=== PATIENT | male | born 1935 | race Caucasian/White ===

== ENCOUNTER 2017-07-05 12:31 | Emergency (ER) | payer MEDICARE, MEDICAID ==
[~2017-07-05] VITALS: Ht 180.3 cm; Wt 77.0 kg
[~2017-07-05 12:31] MED LIST: ALBU18HF2; AMLO5TAB88; ASPI-785 PO; LOSA100T3; OMEP20CA10; SIMV40TA2 PO; TOLT4CAP PO; TRAM50TA3; TRAM50TA3 PO
[2017-07-05 15:34] LABS: BASOPHILS % 0.6 % (0.0-2.0); EOSINOPHILS % 2.4 % (0.0-5.0); HEMATOCRIT. 38.5 % (42.0-52.0); HEMOGLOBIN. 12.7 g/dL (14.0-18.0); LYMPHOCYTES % 22.4 % (20.0-50.0); MEAN CORPUSCULAR HEMOGLOBIN 31.8 pg (28.0-32.0); MEAN CORPUSCULAR VOLUME 96.8 fL (80.0-94.0); MEAN PLATELET VOLUME 6.9 fl (7.4-10.4); MONOCYTES % 12.1 % (2.0-8.0); NEUTROPHILS % 62.5 % (40.0-76.0); PLATELET 191 x1000/uL (130-400); RED BLOOD CELL COUNT 3.98 mill/uL (4.7-6.1); RED CELL DISTRIBUTION WIDTH 14.1 % (11.6-14.6)
[2017-07-05 15:35] LABS: CARBON DIOXIDE 27 mEq/L (21-32); CHLORIDE 106 mEq/L (98-107)
[2017-07-05 17:29] VITALS: BP 112/66
== END 2017-07-05 17:36 | disposition home or self-care (01) ==
LOC: ER 13:47
DX: B34.9 Viral infection, unspecified (principal); J30.9 Allergic rhinitis, unspecified; E78.00 Pure hypercholesterolemia, unspecified; I10 Essential (primary) hypertension; J45.909 Unspecified asthma, uncomplicated; Z79.82 Long term (current) use of aspirin
CPT/HCPCS: 36415; 71010; 80048; 85025; 87804; 99285

== ENCOUNTER 2018-03-10 21:54 | Inpatient (IN) | payer MEDICARE, MEDICAID ==
[~2018-03-10] VITALS: Ht 182.9 cm; Wt 71.8 kg
[~2018-03-10 21:54] MED LIST changes: -AMLO5TAB88; +AMLO5TAB88 PO
[2018-03-11] MEDS ORDERED: SODIUM CHLORIDE 0.9% 1,000 ML IV ONE (00:46)
[2018-03-11 01:18] LABS: BASOPHILS % 0.7 % (0.0-2.0); EOSINOPHILS % 4.7 % (0.0-5.0); HEMATOCRIT. 33.8 % (42.0-52.0); HEMOGLOBIN. 11.5 g/dL (14.0-18.0); LYMPHOCYTES % 28.7 % (20.0-50.0); MEAN CORPUSCULAR HEMOGLOBIN 31.4 pg (28.0-32.0); MEAN CORPUSCULAR VOLUME 92.1 fL (80.0-94.0); MEAN PLATELET VOLUME 6.9 fl (7.4-10.4); MONOCYTES % 9.7 % (2.0-8.0); NEUTROPHILS % 56.2 % (40.0-76.0); PLATELET 161 x1000/uL (130-400); RED BLOOD CELL COUNT 3.67 mill/uL (4.7-6.1); RED CELL DISTRIBUTION WIDTH 14.7 % (11.6-14.6)
[2018-03-11 01:26] LABS: CHLORIDE 104 mEq/L (98-107)
[2018-03-11 01:31] LABS: D-DIMER < 0.19 mg/L FEU (<0.50); INR 1.2; PARTIAL THROMBOPLASTIN TIME 32.5 sec (23.4-31.0); PROTHROMBIN TIME 11.8 sec (9.1-11.1)
[2018-03-11] MEDS ORDERED: MAGNESIUM/ALUMINUM HYDROXIDE/SIMETHICONE 30ML UDC PO PRN (07:00)
[2018-03-11] MEDS ORDERED: DOCUSATE SODIUM 100MG CAPSULE PO PRN (07:00)
[2018-03-11] MEDS ORDERED: ACETAMINOPHEN 325MG TABLET PO PRN (07:00)
[2018-03-11] MEDS ORDERED: HYDROCODONE/ACETAMINOPHEN 5/325MG TABLET PO PRN (07:00)
[2018-03-11] MEDS ORDERED: ONDANSETRON HCL 4MG/2ML INJ IV PRN (07:00)
[2018-03-11] MEDS ORDERED: CLONIDINE 0.1MG TABLET PO PRN (07:00)
[2018-03-11] MEDS ORDERED: IPRATROPIUM/ALBUTEROL 0.5-3(2.5)MG/3ML NEB INH PRN (07:00)
[2018-03-11] MEDS ORDERED: ASPIRIN 325MG EC TABLET PO ONE (07:00)
[2018-03-11] MEDS ORDERED: AMLODIPINE 10MG TABLET PO SCH (10:30)
[2018-03-11] MEDS ORDERED: MORPHINE SULFATE 4 MG/ML CPJ (NOT FOR IM USE) IV PRN (10:45)
[2018-03-11 11:04] VITALS: BP 128/83
[2018-03-11 12:05] VITALS: BP 123/84
[2018-03-11] MEDS ORDERED: RIVA20TA MT (13:43)
[2018-03-11] MEDS ORDERED: DILT-26 MT (13:43)
[2018-03-11] MEDS ORDERED: FURO20TA4 MT (13:43)
[2018-03-11] MEDS ORDERED: CALC-3 MT (13:43)
[2018-03-11] MEDS ORDERED: ALBU6.7H9 INH (13:43)
[2018-03-11] MEDS ORDERED: OMEP20CA10 MT (13:43)
[2018-03-11] MEDS ORDERED: FLUT1DIS3 INH (13:43)
[2018-03-11] MEDS ORDERED: POTA8CAP10 PO (13:43)
[2018-03-11] MEDS ORDERED: MTH/1CAP7 MT (13:43)
[2018-03-11 15:21] VITALS: BP 107/73
[2018-03-11 15:56] LABS: CREATINE KINASE 228 IU/L (39-308)
[2018-03-11] MEDS: ASPIRIN 81MG EC TABLET PO SCH (16:40)
[2018-03-11] MEDS ORDERED: RIVAROXABAN 20 MG TABLET PO SCH (17:00)
[2018-03-11 20:09] VITALS: BP 119/87
[2018-03-11 20:58] VITALS: BP 116/71
[2018-03-11] MEDS: DILTIAZEM HCL 60MG TABLET PO SCH (20:59)
[2018-03-11 23:59] VITALS: BP 122/89
[2018-03-12 00:16] LABS: CREATINE KINASE 223 IU/L (39-308)
[2018-03-12 04:00] VITALS: BP 114/73
[2018-03-12] MEDS: DILTIAZEM HCL 60MG TABLET PO SCH ×2 (06:00→14:16)
[2018-03-12 06:30] VITALS: BP 93/61
[2018-03-12 07:20] LABS: BASOPHILS % 1.2 % (0.0-2.0); EOSINOPHILS % 4.4 % (0.0-5.0); HEMATOCRIT. 37.2 % (42.0-52.0); HEMOGLOBIN. 12.4 g/dL (14.0-18.0); LYMPHOCYTES % 29.5 % (20.0-50.0); MEAN CORPUSCULAR HEMOGLOBIN 31.3 pg (28.0-32.0); MEAN CORPUSCULAR VOLUME 93.7 fL (80.0-94.0); MEAN PLATELET VOLUME 7.8 fl (7.4-10.4); MONOCYTES % 9.7 % (2.0-8.0); NEUTROPHILS % 55.2 % (40.0-76.0); PLATELET 173 x1000/uL (130-400); RED BLOOD CELL COUNT 3.97 mill/uL (4.7-6.1); RED CELL DISTRIBUTION WIDTH 14.9 % (11.6-14.6)
[2018-03-12 07:34] LABS: CHLORIDE 105 mEq/L (98-107)
[2018-03-12 07:56] LABS: LDL CHOLESTEROL 43 mg/dL (5-100)
[2018-03-12 07:57] LABS: HDL CHOLESTEROL 48 mg/dL (40-59)
[2018-03-12 07:58] LABS: T4 FREE 0.81 ng/dL (0.76-1.46)
[2018-03-12] MEDS: ASPIRIN 81MG EC TABLET PO SCH (09:02)
[2018-03-12 12:41] VITALS: BP 133/70
[2018-03-12 14:57] VITALS: BP 130/68
[2018-03-12 16:53] VITALS: BP 102/65
== END 2018-03-12 16:53 | disposition home or self-care (01) | DRG 309 ==
LOC: ER 21:54 → 6WST 03-11 05:09 → SUPCPDRO 03-11 06:51 → ENRESERV 03-11 09:52
PROVIDERS: ADMIT Hospitalist; ATTEND Hospitalist
DX: I48.91 Unspecified atrial fibrillation (principal); D68.59 Other primary thrombophilia; E78.5 Hyperlipidemia, unspecified; I10 Essential (primary) hypertension; J44.9 Chronic obstructive pulmonary disease, unspecified; K21.9 Gastro-esophageal reflux disease without esophagitis; Z79.01 Long term (current) use of anticoagulants; Z86.73 Personal history of transient ischemic attack (TIA), and cerebral infarction without residual deficits; Z79.51 Long term (current) use of inhaled steroids; Z79.899 Other long term (current) drug therapy; Z79.82 Long term (current) use of aspirin
CPT/HCPCS: 36415; 70450; 71045; 80053; 80061; 82550; 83880; 84439; 84443; 84484; 85025; 85379; 85610; 85730; 93005; 93306; 93970; 99285; J7030